=== PATIENT | female | born 1955 | race Caucasian/White ===

== ENCOUNTER 2018-08-05 07:16 | Day surgery (SDC) | payer OTHER ==
[2018-08-05] MEDS ORDERED: ONDANSETRON 4 MG INJ (08:41)
[2018-08-05] MEDS ORDERED: CEFAZOLIN 1 GM INJ (08:41)
[2018-08-05] MEDS ORDERED: CEFAZOLIN 2 GM/50 ML (PMX) 50 ML IVPB (09:00)
[2018-08-05] MEDS ORDERED: FENTAnyl 50 MCG/ML VIAL (09:11)
[2018-08-05] MEDS ORDERED: PROPOFOL 20 ML (09:11)
[2018-08-05] MEDS ORDERED: LIDOCAINE 100 MG SYRINGE (09:12)
[2018-08-05] MEDS ORDERED: ROCURONIUM 50 MG INJ (09:12)
[2018-08-05] MEDS ORDERED: GLYCOPYRROLATE 0.4 MG INJ (09:12)
[2018-08-05] MEDS ORDERED: NEOSTIGMINE 3 MG/3 ML SYRINGE (09:12)
[2018-08-05] MEDS ORDERED: BUPIVACAINE 0.5% (SDV) 30 ML INJ (10:17)
[2018-08-05] MEDS: LIDOCAINE 1% (MPF) 30 ML INJ INJ (11:41)
[2018-08-05] MEDS: BUPIVACAINE 0.5% 30 ML VIAL INJ (11:42)
[2018-08-05] MEDS ORDERED: OXYCODONE/ACETAMINOPHEN (5/325) TAB PO (12:00)
[2018-08-05] MEDS ORDERED: HYDROmorphONE 1 MG/5 ML IV SYRINGE IV ×2 (12:00)
[2018-08-05] MEDS ORDERED: MEPERIDINE 25 MG INJ IV (12:00)
[2018-08-05] MEDS ORDERED: FENTAnyl 50 MCG/ML VIAL IV (12:00)
[2018-08-05] MEDS ORDERED: ONDANSETRON 4 MG INJ IV (12:00)
== END 2018-08-05 12:47 | disposition home or self-care (01) ==
LOC: SDS 07:16
DX: L60.0 Ingrowing nail (principal); L03.032 Cellulitis of left toe; L03.031 Cellulitis of right toe; E11.9 Type 2 diabetes mellitus without complications; E78.5 Hyperlipidemia, unspecified; E03.9 Hypothyroidism, unspecified
CPT/HCPCS: 11750; 82962; 88304